=== PATIENT | female | born 1985 | race African-American/Black ===

== ENCOUNTER 2018-09-24 21:38 | Emergency (ER) | payer MEDICAID, OTHER ==
[~2018-09-24] VITALS: Ht 182.9 cm; Wt 136.4 kg
[~2018-09-24 21:38] MED LIST: NOCURR
[2018-09-25] MEDS ORDERED: HYDROCODONE/ACETAMINOPHEN 5-325 MG TABLET PO ONE (00:30)
[2018-09-25] MEDS ORDERED: KETOROLAC TROMETHAMINE 60 MG/2 ML VIAL IM ONE (00:30)
[2018-09-25] MEDS ORDERED: PENICILLIN V POTASSIUM 500 MG TABLET PO ONE (01:00)
[2018-09-25 02:15] VITALS: BP 145/89
== END 2018-09-25 02:17 | disposition home or self-care (01) ==
LOC: EMS 21:39
DX: K08.89 Other specified disorders of teeth and supporting structures (principal); G43.909 Migraine, unspecified, not intractable, without status migrainosus
CPT/HCPCS: 96372; 99283; J1885

== ENCOUNTER 2019-04-21 21:26 | Emergency (ER) | payer OTHER ==
[~2019-04-21] VITALS: Ht 182.9 cm; Wt 142.3 kg
[2019-04-21] MEDS ORDERED: IBUPROFEN 800 MG TABLET PO ONE (22:45)
[2019-04-21] MEDS ORDERED: HYDROCODONE/ACETAMINOPHEN 5-325 MG TABLET PO ONE (23:30)
[2019-04-22 00:11] VITALS: BP 132/88
== END 2019-04-22 00:47 | disposition home or self-care (01) ==
LOC: EMS 21:27
DX: S82.425A Nondisplaced transverse fracture of shaft of left fibula, initial encounter for closed fracture (principal); G43.909 Migraine, unspecified, not intractable, without status migrainosus; W01.0XXA Fall on same level from slipping, tripping and stumbling without subsequent striking against object, initial encounter; Y93.01 Activity, walking, marching and hiking; Y92.89 Other specified places as the place of occurrence of the external cause; Y99.8 Other external cause status
CPT/HCPCS: 29515

== ENCOUNTER 2020-06-23 17:22 | Emergency (ER) | payer OTHER ==
[~2020-06-23] VITALS: Ht 182.9 cm; Wt 127.3 kg
[2020-06-23] MEDS ORDERED: [UNRECOGNIZED DRUG - REMARK] PO (17:26)
[2020-06-23] MEDS ORDERED: LIDOCAINE 2%/EPI 1:200,000/PF 10 ML VIAL ID ONE (17:45)
[2020-06-23] MEDS ORDERED: HYDROCODONE/ACETAMINOPHEN 5-325 MG TABLET PO ONE (17:45)
[2020-06-23 18:46] VITALS: BP 141/79
== END 2020-06-23 19:02 | disposition home or self-care (01) ==
LOC: EMS 17:22
DX: N61.1 Abscess of the breast and nipple (principal)
CPT/HCPCS: 10060; 87070

== ENCOUNTER 2020-11-04 20:35 | Emergency (ER) | payer OTHER ==
[~2020-11-04] VITALS: Ht 185.4 cm; Wt 136.4 kg
[~2020-11-04 20:35] MED LIST changes: -NOCURR; +[UNRECOGNIZED DRUG - REMARK] PO
[2020-11-04 22:00] VITALS: BP 163/96
[2020-11-04] MEDS ORDERED: SULFAMETHOX/TRIMETH DS 800-160 MG/TABLET PO ONE (22:45)
[2020-11-04] MEDS ORDERED: CEPHALEXIN MONOHYDRATE 500 MG CAPSULE PO ONE (22:45)
== END 2020-11-04 23:00 | disposition home or self-care (01) ==
LOC: EMS 20:37
DX: N61.0 Mastitis without abscess (principal); G43.909 Migraine, unspecified, not intractable, without status migrainosus; F12.90 Cannabis use, unspecified, uncomplicated; F17.210 Nicotine dependence, cigarettes, uncomplicated
CPT/HCPCS: 99283

== ENCOUNTER 2021-09-02 14:27 | Emergency (ER) | payer OTHER ==
[~2021-09-02] VITALS: Ht 182.9 cm; Wt 154.0 kg
[2021-09-02] MEDS ORDERED: FAMOTIDINE 10 MG/ML 2 ML VIAL IVP ONE (15:00)
[2021-09-02] MEDS ORDERED: MAG HYDROX/AL HYDROX/SIMETH 30 ML SUSP UDCUP PO ONE (15:00)
[2021-09-02] MEDS ORDERED: SODIUM CHLORIDE 0.9% 1,000 ML IV ONE (15:00)
[2021-09-02] MEDS ORDERED: ONDANSETRON HCL 4 MG/2 ML VIAL IVP ONE (15:00)
[2021-09-02 15:21] LABS: GLUCOSE,POINT OF CARE 163 MG/DL (70-110)
[2021-09-02 15:34] LABS: BASOPHILS % (AUTO) 0.7 % (0.0-2.0); EOSINOPHILS % (AUTO) 0.6 % (1.0-6.0); HEMATOCRIT 41.9 % (36-46); HEMOGLOBIN 13.9 g/dL (12.0-16.0); LYMPHOCYTES # (AUTO) 1.7 K/uL (1.0-4.8); LYMPHOCYTES % (AUTO) 17.4 % (22.0-44.0); MEAN CORPUSCULAR HGB CONC 33.2 G/dL (31.0-37.0); MEAN CORPUSCULAR VOLUME 78 fL (80-100); MONOCYTES % (AUTO) 10.6 % (2.0-9.0); NEUTROPHILS # (AUTO) 6.9 K/uL (1.8-7.7); NEUTROPHILS % (AUTO) 70.7 % (40.0-70.0); PLATELET COUNT (AUTO) 364 K/uL (150-450); RED BLOOD CELL COUNT(AUTO) 5.34 MIL/uL (4.00-5.20); RED CELL DISTRIBUTION WIDTH 16.8 % (11.5-14.5)
[2021-09-02 15:57] LABS: B-TYPE NATRIURETIC PEPTIDE 6 pg/mL (0-100)
[2021-09-02 16:03] LABS: ANION GAP 10 mmol/L (8-16); CALCIUM, TOTAL 9.8 mg/dL (8.8-10.5); CARBON DIOXIDE 25 mmol/L (22-29); CHLORIDE 98 mmol/L (98-107); CREATININE 1.79 mg/dL (0.60-1.30); GLOMERULAR FILTR. RATE CALC 39 mL/min (>60); GLUCOSE,RANDOM 170 mg/dL (70-110); POTASSIUM 4.4 mmol/L (3.5-5.1); SODIUM SERUM 133 mmol/L (136-145); UREA NITROGEN, BLOOD 14 mg/dL (7-18)
[2021-09-02 16:16] LABS: ALANINE AMINOTRANSFERASE 25 U/L (12-78); ALKALINE PHOSPHATASE 95 U/L (46-116); ASPARTATE AMINOTRANSFERASE 21 U/L (15-37); BILIRUBIN,TOTAL 0.3 mg/dL (0.1-1.0); CREATINE KINASE, TOTAL ONLY 50 U/L (26-192); HCG,QUANTITATIVE < 1 mIU/mL (0-6); LIPASE 105 U/L (73-393); PHOSPHORUS 4.3 mg/dL (2.5-4.9)
[2021-09-02 16:22] LABS: COVID AG,FIA SOURCE NASOPHARYNGEAL
[2021-09-02] MEDS ORDERED: SODIUM CHLORIDE 0.9% 100 ML ONE (16:30)
[2021-09-02] MEDS ORDERED: IOHEXOL 350 MG/ML 150 ML VIAL ONE (16:30)
[2021-09-02 16:57] LABS: INFLUENZA TYPE A NEGATIVE FOR TYPE A (NEGATIVE); INFLUENZA TYPE B NEGATIVE FOR TYPE B (NEGATIVE)
[2021-09-02] MEDS ORDERED: ONDA-104 PO (19:38)
[2021-09-02 19:47] VITALS: BP 141/79
== END 2021-09-02 19:53 | disposition home or self-care (01) ==
LOC: EMS 14:28
DX: R42 Dizziness and giddiness (principal); R11.2 Nausea with vomiting, unspecified; F17.210 Nicotine dependence, cigarettes, uncomplicated; Z20.822 Contact with and (suspected) exposure to COVID-19
CPT/HCPCS: 36415; 70450; 71045; 74177; 80053; 82550; 82962; 83690; 83735; 83880; 84100; 84484; 84702; 85025; 87426; 87804; 93005; 96361; 96374; 96375; 99285; J2405; J3490; J7030; J7050; Q9967

== ENCOUNTER 2023-05-28 17:11 | Emergency (ER) | payer OTHER ==
[~2023-05-28] VITALS: Ht 182.9 cm; Wt 145.4 kg
[~2023-05-28 17:11] MED LIST changes: +ONDA-104 PO
[2023-05-28 19:30] VITALS: BP 141/90; PULSE 86; RESP 16; TEMP 98.3
== END 2023-05-28 19:30 | disposition home or self-care (01) ==
LOC: EMS 17:14
DX: S93.402A Sprain of unspecified ligament of left ankle, initial encounter (principal); I10 Essential (primary) hypertension; F12.90 Cannabis use, unspecified, uncomplicated; F17.210 Nicotine dependence, cigarettes, uncomplicated; Z90.49 Acquired absence of other specified parts of digestive tract; W01.0XXA Fall on same level from slipping, tripping and stumbling without subsequent striking against object, initial encounter; Y93.89 Activity, other specified; Y92.89 Other specified places as the place of occurrence of the external cause; Y99.8 Other external cause status
CPT/HCPCS: 99284; 73130-TC; 73610-TC; 73630-TC; Z7502